=== PATIENT | male | born 1995 | race Asian ===

== ENCOUNTER 2017-10-11 01:33 | Emergency (ER) | payer BC ==
--- NOTE | 2017-10-11 02:58 | EDPHY ---
H & P Stated Complaint: L thumb lack Time Seen by Provider: 10/11/17 01:41 HPI/ROS: Chief Complaint: Laceration HPI: Old male was cutting some fruit when he accidentally cut his left thumb. Denies other injuries. He is up-to-date on his tetanus and immunizations. ROS: 10 point Review of Systems is negative except as noted in the HPI. PMH: Denies Social History: No smoking, no alcohol, no recreational drug use Family History: non-contributory Physical Exam: General: Awake, alert, no acute distress Left thumb: Patient is not able to fully extend his thumb. He has a 5 cm flap laceration on the dorsum of his thumb, primarily over the proximal phalanx but extending across the knuckle joint. I am not able to visualize the tendon. Sensations intact. Capillary refills less than 2 sec. Skin: No rash - Personal History Current Tetanus/Diphtheria Vaccine: Unsure Current Tetanus Diphtheria and Acellular Pertussis (TDAP): Unsure - Medical/Surgical History Hx Asthma: No Hx Chronic Respiratory Disease: No Hx Diabetes: No Hx Cardiac Disease: No Hx Renal Disease: No Hx Cirrhosis: No Hx Alcoholism: No Hx HIV/AIDS: No Hx Splenectomy or Spleen Trauma: No Other PMH: Denies - Social History Smoking Status: Never smoked Constitutional: Initial Vital Signs Temperature (C) 37.1 C 10/11/17 01:36 Heart Rate 79 10/11/17 01:36 Respiratory Rate 16 10/11/17 01:36 Blood Pressure 139/79 H 10/11/17 01:36 O2 Sat (%) 99 10/11/17 01:36 O2 Delivery Mode Room Air Allergies/Adverse Reactions: peanut Allergy (Verified 10/11/17 01:40) Home Medications: Medication Instructions Recorded NK [No Known Home Meds] 10/11/17 Medical Decision Making Procedures: Procedure: Digital nerve block, indication is digit anesthesia for procedure. Patient was prepped with chlorhexidine Skin prep. 0.5% bupivacaine was infiltrated in the medial in lateral aspects with a dorsal approach at the base of the proximal phalanx with blockage of both dorsal and volar nerves. Total of 1 mL was infiltrated. There were no complications. Procedure was performed by myself. Procedure: Laceration repair. Verbal consent was obtained from the patient. The 5 cm laceration on the left thumb was anesthetized with a digital nerve block. The wound was irrigated, draped and explored to its base with a gloved finger. There were no deep structures involved. Clinically has a tendon injury because not able to fully extend the thumb. The wound was repaired with 11, 5-0 Ethilon simple interrupted sutures. The wound repair was uncomplicated. The procedure was performed by myself. ED Course/Re-evaluation: 22-year-old male with a thumb laceration with the parent tendon involvement as he is not able to fully extend his thumb. Wound has been closed. He has been placed in a bulky dressing. Will discharge with referral to hand surgery in 2 days for further evaluation. Departure - Departure Disposition: Home, Routine, Self-Care Clinical Impression: Laceration Condition: Good Instructions: Laceration (ED), Care For Your Stitches (ED) Additional Instructions: Follow up with the hand surgeon in 2 days for further evaluation. Return to the emergency depart for increasing pain, redness, discharge from the wound, or any other concerns. Referrals: Brent Dior MD [Medical Doctor] - As per Instructions
[2017-10-11 03:18] VITALS: BP 130/77
== END 2017-10-11 03:18 | disposition home or self-care (01) ==
PROC: 0HQGXZZ Repair Left Hand Skin, External Approach (ICD-10-PCS; principal; 2017-10-11)
DX: S61.012A Laceration without foreign body of left thumb without damage to nail, initial encounter (principal); W26.0XXA Contact with knife, initial encounter; Y93.G1 Activity, food preparation and clean up